=== PATIENT | male | born 1945 | race Caucasian/White ===

== ENCOUNTER 2017-05-31 09:52 | Inpatient (IN) | payer OTHER ==
[~2017-05-31] VITALS: Ht 180.3 cm; Wt 122.5 kg
[~2017-05-31 09:52] MED LIST: ASPIRIN325 MG PO; GLIPIZIDE10 MG PO; GLUCOPHAGE500 MG PO; LASIX20 MG PO; LEVAQUIN500 MG PO; METOPROLOL TART50 MG PO; PLAVIX75 MG PO; ZESTRIL20 MG PO; ZOCOR80 MG PO
[2017-05-31 10:30] LABS: BASOPHILS 0.1 % (0-2); EOSINOPHILS 0 % (0-7); HEMATOCRIT 38.1 % (42.0-54.0); HEMOGLOBIN 12.6 g/dL (13.5-17.5); IMMATURE GRANULOCYTES 0.6 % (0-5); LYMPHOCYTES 3.1 % (15-50); MCH 30.1 pg (26.0-34.0); MCHC 33.1 g/dL (31.0-37.0); MCV 91.1 fL (80.0-100.0); MEAN PLATELET VOLUME 9.7 fL (7.4-10.4); MONOCYTES 8.8 % (2-11); NEUTROPHILS 87.4 % (40-80); PLATELET COUNT 244 10x3/uL (130-400); RBC 4.18 10x6/uL (4.20-6.10); RDW 14.2 % (11.5-14.5); WBC 15.1 10x3/uL (4.8-10.8)
[2017-05-31 10:55] LABS: APPEARANCE CLOUDY (CLEAR); BILIRUBIN NEGATIVE (NEGATIVE); COLOR YELLOW (YELLOW); GLUCOSE NEGATIVE (NEGATIVE); KETONE NEGATIVE (NEGATIVE); NITRITE POSITIVE (NEGATIVE); PROTEIN 2+ mg/dL (NEGATIVE); UROBILINOGEN NORMAL (NORMAL)
[2017-05-31 11:02] LABS: RED CELLS - URINE 0-5 /hpf (0-5)
[2017-05-31 11:03] LABS: BACTERIA MANY /hpf (NONE SEEN); EPITHELIAL CELLS 0-5 /hpf (0-5); MUCUS <1+ /lpf (NONE SEEN)
[2017-05-31 11:06] LABS: ALBUMIN 3.1 g/dL (3.4-5.0); ALKALINE PHOSPHATASE 71 U/L (46-116); ALT (SGPT) 19 U/L (10-68); BILIRUBIN - TOTAL 0.23 mg/dL (0.2-1.3); CALC OSMOLALITY 293 mosm/kg (275-300); CARBON DIOXIDE 18.5 mmol/L (21.0-32.0); CHLORIDE - SERUM 100 mmol/L (98-107); CREATININE - SERUM 1.9 mg/dL (0.6-1.3); GLUCOSE 290 mg/dL (74-106); POTASSIUM - SERUM 5.1 mmol/L (3.5-5.1); PROTEIN - SERUM 7.3 g/dL (6.4-8.2); SODIUM 130 mmol/L (136-145); UREA NITROGEN 74 mg/dL (7-18); eGFR NON AFRICAN AMERICAN 37 mL/min (90-120)
[2017-05-31 11:11] LABS: CKMB 7.5 U/L (0.0-3.6); CREATINE KINASE 198 UL (21-232); MAGNESIUM - SERUM 1.7 mg/dL (1.8-2.4); PRO BNP 284 pg/mL (0-125)
[2017-05-31 11:11] LABS: AMORPHOUS SEDIMENT <1+ /lpf (NONE SEEN)
[2017-05-31 11:14] LABS: TROPONIN-I < 0.017 ng/mL (0.000-0.060)
[2017-05-31 11:15] LABS: TRIPLE PHOSPHATE CRYSTALS >50 /hpf (NONE SEEN)
[2017-05-31 21:06] LABS: APPEARANCE HAZY (CLEAR); BILIRUBIN NEGATIVE (NEGATIVE); COLOR YELLOW (YELLOW); GLUCOSE NEGATIVE (NEGATIVE); NITRITE NEGATIVE (NEGATIVE); PROTEIN 1+ mg/dL (NEGATIVE); UROBILINOGEN NORMAL (NORMAL)
[2017-05-31 21:07] LABS: WHITE CELLS - URINE 25-50 /hpf (0-5)
[2017-05-31 21:08] LABS: BACTERIA MANY /hpf (NONE SEEN)
[2017-05-31 21:24] LABS: KETONE NEGATIVE (NEGATIVE)
[2017-06-01 18:05] LABS: BASOPHILS 0.4 % (0-2); EOSINOPHILS 0 % (0-7); HEMATOCRIT 33.2 % (42.0-54.0); HEMOGLOBIN 10.6 g/dL (13.5-17.5); IMMATURE GRANULOCYTES 4.8 % (0-5); LYMPHOCYTES 8.1 % (15-50); MCH 29.3 pg (26.0-34.0); MCHC 31.9 g/dL (31.0-37.0); MCV 91.7 fL (80.0-100.0); MEAN PLATELET VOLUME 9.4 fL (7.4-10.4); MONOCYTES 7.2 % (2-11); NEUTROPHILS 79.5 % (40-80); PLATELET COUNT 229 10x3/uL (130-400); RBC 3.62 10x6/uL (4.20-6.10); RDW 14.4 % (11.5-14.5); WBC 17.8 10x3/uL (4.8-10.8)
[2017-06-01 18:39] LABS: ALBUMIN 2.6 g/dL (3.4-5.0); ANION GAP 14.9 mmol/L (8-16); BILIRUBIN - TOTAL 0.2 mg/dL (0.2-1.3); CALCIUM 8.4 mg/dL (8.5-10.1); CARBON DIOXIDE 17.8 mmol/L (21.0-32.0); CREATININE - SERUM 1.6 mg/dL (0.6-1.3); POTASSIUM - SERUM 4.7 mmol/L (3.5-5.1); PROTEIN - SERUM 5.7 g/dL (6.4-8.2)
[2017-06-01 18:49] VITALS: BMI 37.7
[2017-06-01 22:39] VITALS: BP 108/64
[2017-06-02 02:54] VITALS: BP 126/57
[2017-06-02 05:31] VITALS: BP 124/54
[2017-06-02 07:57] VITALS: BP 122/68
[2017-06-02 12:30] VITALS: BP 107/47
[2017-06-02 13:57] VITALS: Ht 180.3 cm; Wt 122.5 kg
[2017-06-02 16:33] VITALS: BP 103/44
[2017-06-02 23:32] VITALS: BP 121/48
[2017-06-03 04:00] VITALS: BP 124/48
[2017-06-03 06:01] LABS: HEMATOCRIT 32.5 % (42.0-54.0); HEMOGLOBIN 10.5 g/dL (13.5-17.5); MCH 29.4 pg (26.0-34.0); MCHC 32.3 g/dL (31.0-37.0); MEAN PLATELET VOLUME 9.8 fL (7.4-10.4); PLATELET COUNT 284 10x3/uL (130-400); RBC 3.57 10x6/uL (4.20-6.10); RDW 14.5 % (11.5-14.5); WBC 21.7 10x3/uL (4.8-10.8)
[2017-06-03 06:22] LABS: ANION GAP 14.1 mmol/L (8-16); CALCIUM 8.5 mg/dL (8.5-10.1); CREATININE - SERUM 1.5 mg/dL (0.6-1.3); POTASSIUM - SERUM 4.1 mmol/L (3.5-5.1)
[2017-06-03 06:45] LABS: LYMPHOCYTES 16 % (15-50); MONOCYTES 8 % (2-11); NEUTROPHILS 60 % (40-80); PLATELET ESTIMATE NORMAL
[2017-06-03 07:59] VITALS: BP 129/68
[2017-06-03 12:31] VITALS: BP 134/61
[2017-06-03] MEDS ORDERED: NICODERM C1 PATCH .3 TRANSDERM (16:08)
[2017-06-03] MEDS ORDERED: TAMIFLU75 MG PO (16:08)
[2017-06-03] MEDS ORDERED: PROTONIX40 MG PO (16:09)
[2017-06-03] MEDS ORDERED: ALBUTEROL2.5 MG/3 M INH (16:09)
[2017-06-03 16:19] VITALS: BP 120/65
== END 2017-06-03 17:28 | disposition home or self-care (01) | DRG 871 ==
LOC: D.ER 09:52 → D.SDCHOLD 13:54 → D.MS 13:54
PROVIDERS: Family Medicine; Internal Medicine Nephrology
DX: A41.9 Sepsis, unspecified organism (principal); J09.X1 Influenza due to identified novel influenza A virus with pneumonia; J96.01 Acute respiratory failure with hypoxia; F17.203 Nicotine dependence unspecified, with withdrawal; N17.9 Acute kidney failure, unspecified; E87.1 Hypo-osmolality and hyponatremia; N39.0 Urinary tract infection, site not specified; J44.9 Chronic obstructive pulmonary disease, unspecified; F17.200 Nicotine dependence, unspecified, uncomplicated; I10 Essential (primary) hypertension; E11.9 Type 2 diabetes mellitus without complications; I25.10 Atherosclerotic heart disease of native coronary artery without angina pectoris; C67.9 Malignant neoplasm of bladder, unspecified

== ENCOUNTER 2018-05-23 08:50 | Emergency (ER) | payer OTHER ==
[~2018-05-23] VITALS: Ht 180.3 cm; Wt 88.5 kg
[~2018-05-23 08:50] MED LIST changes: +ALBUTEROL2.5 MG/3 M INH; +NICODERM C1 PATCH .3 TRANSDERM; +PROTONIX40 MG PO; +TAMIFLU75 MG PO
[2018-05-23 08:54] VITALS: Ht 180.3 cm; Wt 88.5 kg
[2018-05-23 10:08] LABS: ALBUMIN 3.2 g/dL (3.4-5.0); ALKALINE PHOSPHATASE 91 U/L (46-116); ALT (SGPT) 14 U/L (10-68); BILIRUBIN - TOTAL 0.14 mg/dL (0.2-1.3); CALC OSMOLALITY 288 mosm/kg (275-300); CALCIUM 9.5 mg/dL (8.5-10.1); CARBON DIOXIDE 12.7 mmol/L (21.0-32.0); CHLORIDE - SERUM 100 mmol/L (98-107); CREATININE - SERUM 2.7 mg/dL (0.6-1.3); HEMATOCRIT 31.3 % (42.0-54.0); HEMOGLOBIN 10.4 g/dL (13.5-17.5); MCH 29.8 pg (26.0-34.0); MCHC 33.2 g/dL (31.0-37.0); MCV 89.7 fL (80.0-100.0); MEAN PLATELET VOLUME 9.5 fL (7.4-10.4); PLATELET COUNT 496 10x3/uL (130-400); PROTEIN - SERUM 7.1 g/dL (6.4-8.2); RBC 3.49 10x6/uL (4.20-6.10); RDW 14.4 % (11.5-14.5); SODIUM 128 mmol/L (136-145); UREA NITROGEN 101 mg/dL (7-18); WBC 39.2 10x3/uL (4.8-10.8); eGFR NON AFRICAN AMERICAN 25 mL/min (90-120)
[2018-05-23 10:09] LABS: GLUCOSE 94 mg/dL (74-106)
[2018-05-23 10:18] LABS: APPEARANCE CLOUDY (CLEAR); BILIRUBIN NEGATIVE (NEGATIVE); COLOR YELLOW (YELLOW); GLUCOSE NEGATIVE (NEGATIVE); KETONE NEGATIVE (NEGATIVE); NITRITE NEGATIVE (NEGATIVE); PROTEIN 1+ mg/dL (NEGATIVE); SPECIFIC GRAVITY 1.005 (1.005-1.020); UROBILINOGEN NORMAL (NORMAL)
[2018-05-23 10:21] LABS: CREATINE KINASE 119 UL (21-232); PRO BNP 158 pg/mL (0-125); TROPONIN-I < 0.017 ng/mL (0.000-0.060)
[2018-05-23 10:22] LABS: EPITHELIAL CELLS 0-5 /hpf (0-5); MUCUS <1+ /lpf (NONE SEEN); TALC POWDER CRYSTALS 0-5 /hpf (NONE SEEN); WHITE CELLS - URINE 0-5 /hpf (0-5)
[2018-05-23 10:23] LABS: AMORPHOUS SEDIMENT >1+ /lpf (NONE SEEN); BACTERIA MANY /hpf (NONE SEEN); RED CELLS - URINE RARE /hpf (0-5)
[2018-05-23 10:47] LABS: LYMPHOCYTES 9 % (15-50); MONOCYTES 7 % (2-11); NEUTROPHILS 83 % (40-80); PLATELET ESTIMATE INCREASED
[2018-05-23 10:48] LABS: ANISOCYTOSIS OCC
[2018-05-23 13:19] VITALS: BP 117/65
== END 2018-05-23 13:30 | disposition other institution (70) ==
LOC: D.ER 08:50
PROVIDERS: Emergency Medicine
DX: E86.0 Dehydration (principal); N17.9 Acute kidney failure, unspecified; I95.9 Hypotension, unspecified; E87.2 Acidosis; E11.9 Type 2 diabetes mellitus without complications; I10 Essential (primary) hypertension

== ENCOUNTER 2019-01-15 12:00 | Inpatient (IN) | payer MEDICARE ==
[~2019-01-15] VITALS: Ht 180.3 cm; Wt 99.8 kg
[2019-01-15 12:28] LABS: APPEARANCE CLOUDY (CLEAR); BILIRUBIN NEGATIVE (NEGATIVE); COLOR PINK (YELLOW); GLUCOSE NEGATIVE (NEGATIVE); KETONE NEGATIVE (NEGATIVE); NITRITE POSITIVE (NEGATIVE); PROTEIN 2+ mg/dL (NEGATIVE); UROBILINOGEN NORMAL (NORMAL)
[2019-01-15 12:38] LABS: BACTERIA MODERATE /hpf (NONE SEEN); EPITHELIAL CELLS NSEEN /hpf (0-5); RED CELLS - URINE 25-50 /hpf (0-5)
[2019-01-15 12:39] LABS: AMORPHOUS SEDIMENT <1+ /lpf (NONE SEEN)
[2019-01-15 12:41] LABS: BASOPHILS 0.2 % (0-2); EOSINOPHILS 0.9 % (0-7); HEMATOCRIT 41.3 % (42.0-54.0); HEMOGLOBIN 12.9 g/dL (13.5-17.5); IMMATURE GRANULOCYTES 0.9 % (0-5); LYMPHOCYTES 12.2 % (15-50); MCH 29.5 pg (26.0-34.0); MCHC 31.2 g/dL (31.0-37.0); MCV 94.3 fL (80.0-100.0); MEAN PLATELET VOLUME 10.3 fL (7.4-10.4); MONOCYTES 6.8 % (2-11); RBC 4.38 10x6/uL (4.20-6.10); RDW 14.4 % (11.5-14.5)
[2019-01-15 12:45] LABS: PLATELET COUNT 258 10x3/uL (130-400)
[2019-01-15 13:09] LABS: ANION GAP 8.5 mmol/L (8-16); BILIRUBIN - TOTAL 0.28 mg/dL (0.2-1.3); CALCIUM 8.6 mg/dL (8.5-10.1); CARBON DIOXIDE 28.9 mmol/L (21.0-32.0); CREATININE - SERUM 1.6 mg/dL (0.6-1.3); PROTEIN - SERUM 6.8 g/dL (6.4-8.2)
[2019-01-15 13:11] LABS: POTASSIUM - SERUM 6.4 mmol/L (3.5-5.1)
--- NOTE | 2019-01-15 13:12 | NUR ---
POTASSIUM 6.4 CRITICAL LAB; CHARAN RAMIREZ AND PRIMARY RN INFORMED AT THIS TIME
--- NOTE | 2019-01-15 13:26 | NUR ---
PATIENT SITTING ON THE SIDE OF THE BED; UPDATED ON PLAN OF CARE; REPORTS HE DOES NOT WANT AN IV UNTIL AFTER HE GOES OUTSIDE AND SMOKES A CIGARETTE; OFFERED A NICOTINE PATCH; REFUSED PATCH.
--- NOTE | 2019-01-15 14:15 | NUR ---
PATIENT TO RESTROOM WITHOUT ASSIST. NO NEEDS NOTED; UPDATED ON PLAN OF CARE AND DELAYS IN CARE; WILL CONTINUE TO MONITOR.
[2019-01-15 14:21] VITALS: BP 140/67
--- NOTE | 2019-01-15 15:00 | NUR ---
PATIENT TO RESTROOM WITHOUT ASSIST; NO NEEDS NOTED; WILL CONTINUE TO MONITOR
--- NOTE | 2019-01-15 15:21 | MORECARE ---
CASE MANAGEMENT DISCHARGE SUMMARY PATIENT: TROY BASS UNIT: [id number] ADM DATE: 01/15/19 AGE: 73 : 46 SEX: M ROOM/BED: D.2134 AUTHOR: ARY LARA PHYSICIAN: REFERRING PHYSICIAN: HANSA GARCIA MD DATE OF SERVICE: 01/15/19 Discharge Plan Patient Name: TROY BASS Facility: [facility]:[place] : 1945 Planned Disposition: Anticipated Discharge Date: 01/15/19 Discharge Date: Expected LOS: 1 Initial Reviewer: [email or web address] Initial Review Date: 01/15/2019 Generated: 01/15/19 4:21 pm DCPIA - Discharge Planning Initial Assessment Updated by [email or web address]: Yuliya Sarabia on 01/15/19 3:19 pm * Is the patient Alert and Oriented? Yes * How many steps to enter\exit or inside your home? none * PCP Dr. Bill @ [facility] * Pharmacy [facility] [address] * Preadmission Environment Home with Family * ADLs Independent * Equipment Glucometer * List name and contact numbers for known caregivers / representatives who currently or will assist patient after discharge: Elena Bass- - [phone] * Verbal permission to speak to the caregivers and representatives has been obtained from the patient. Yes * Community resources currently utilized None * Additional services required to return to the preadmission environment? No * Can the patient safely return to the preadmission environment? Yes * Has this patient been hospitalized within the prior 30 days at any hospital? No Patient Name: TROY BASS Page [id number] at 1521 All edits/amendments must be made on the electronic document DICTATION DATE: 01/15/19 152 CLAIM PROFESSIONAL: WARREN 01/15/19 152 RPT#: [id number] DC DATE: STATUS: ADM IN [facility] [address] [place] [address] END OF REPORT
--- NOTE | 2019-01-15 15:27 | NUR ---
REPORT GIVEN TO LORI HARRIS; SHE ASKED IF WE COULD HOLD OFF ON TRANSPORTING PATIENT UNTIL 0890;
--- NOTE | 2019-01-15 15:29 | MORECARE ---
CASE MANAGEMENT DISCHARGE SUMMARY PATIENT: TROY BASS UNIT: [id number] ADM DATE: 01/15/19 AGE: 73 : 46 SEX: M ROOM/BED: D.2134 AUTHOR: MARCO,DOC PHYSICIAN: REFERRING PHYSICIAN: HANSA GARCIA MD DATE OF SERVICE: 01/15/19 Discharge Plan Patient Name: TROY BASS Facility: [facility]:[place] : 1945 Planned Disposition: Anticipated Discharge Date: 01/15/19 Discharge Date: Expected LOS: 1 Initial Reviewer: [email or web address] Initial Review Date: 01/15/2019 Generated: 01/15/19 4:29 pm DCP- Discharge Planning Updated by [email or web address]: Yuliya Sarabia on 01/15/19 2:[address] DC PLAN: Return home independently with . ANTICIPATED DC NEEDS: Denied known dc needs. CM met with patient and his to complete initial dc planning assessment. CM educated patient on the CM role and verbal consent given by patient to complete assessment. CM verified patient's address, phone number, and emergency contact phone numbers. [facility] has [facility] connections and is refusing to transfer. CM presented [facility] consent to transfer form, his singed at his request, for decline to transfer. CM faxed to form to the [facility]. Patient lives at home with his independently. At discharge patient plans to return home and feels this is a safe discharge. CM discussed availability of home health, rehab services, and medical equipment. Patient denied known discharge needs at this time. Patient reports his will transport him/her home at time of discharge. CM will continue to follow and will assist as needed with dc plans/needs. Yuliya Sarabia RN, [facility] DCPIA - Discharge Planning Initial Assessment Updated by [email or web address]: Yuliya Sarabia on 01/15/19 3:19 pm * Is the patient Alert and Oriented? Yes * How many steps to enter\exit or inside your home? none * PCP Dr. Bill @ [facility] * Pharmacy [facility] [address] * Preadmission Environment Home with Family * ADLs Independent * Equipment Glucometer * List name and contact numbers for known caregivers / representatives who currently or will assist patient after discharge: Elena Bass- - [phone] * Verbal permission to speak to the caregivers and representatives has been obtained from the patient. Yes * Community resources currently utilized None * Additional services required to return to the preadmission environment? No * Can the patient safely return to the preadmission environment? Yes * Has this patient been hospitalized within the prior 30 days at any hospital? No Last DP export: 01/15/19 2:21 p Patient Name: TROY BASS Page [id number] at 1529 All edits/amendments must be made on the electronic document DICTATION DATE: 01/15/191528 SALES AND MARKETING ANALYST: WARREN 01/15/191528 RPT#: [id number] DC DATE: STATUS: ADM IN [facility] [address] [place] [address] END OF REPORT
--- NOTE | 2019-01-15 16:32 | NUR ---
ARRIVE TO ROOM VIA WHEELCHAIR FROM ER. ALERT AND ORIENTED X4. AMBULATES TO BED. GAIT STEADY. IV INFUSING ORDERED. REFUSE SCDs AT THIS TIME DUE TO FREQUENTLY IN RESTROOM. CONTINUE ADMISSION PROCESS. CONTINUE PLAN OF CARE AND SAFETY PRECAUTIONS.
[2019-01-15 17:51] VITALS: BP 120/70; BMI 30.7
--- NOTE | 2019-01-15 19:21 | NUR ---
PATIENT LAYING IN BED. NO COMPLAINTS AT THIS TIME. NO DISTRESS NOTED.
[2019-01-15 20:05] VITALS: BP 141/76
[2019-01-15 23:42] VITALS: BP 124/66
[2019-01-16 04:15] VITALS: BP 136/70
[2019-01-16 06:00] LABS: ALBUMIN 2.7 g/dL (3.4-5.0); ANION GAP 12.4 mmol/L (8-16); BILIRUBIN - TOTAL 0.17 mg/dL (0.2-1.3); CALCIUM 7.9 mg/dL (8.5-10.1); CARBON DIOXIDE 26.5 mmol/L (21.0-32.0); CREATININE - SERUM 1.6 mg/dL (0.6-1.3); MAGNESIUM - SERUM 1.5 mg/dL (1.8-2.4); PROTEIN - SERUM 6.2 g/dL (6.4-8.2)
[2019-01-16 06:13] LABS: BASOPHILS 0.3 % (0-2); EOSINOPHILS 0.7 % (0-7); HEMATOCRIT 39.5 % (42.0-54.0); HEMOGLOBIN 12.1 g/dL (13.5-17.5); IMMATURE GRANULOCYTES 0.8 % (0-5); LYMPHOCYTES 11.4 % (15-50); MCH 29.1 pg (26.0-34.0); MCHC 30.6 g/dL (31.0-37.0); MEAN PLATELET VOLUME 10.4 fL (7.4-10.4); MONOCYTES 7.8 % (2-11); PLATELET COUNT 262 10x3/uL (130-400); RBC 4.16 10x6/uL (4.20-6.10); RDW 14.7 % (11.5-14.5); WBC 10.8 10x3/uL (4.8-10.8)
[2019-01-16 06:18] LABS: POTASSIUM - SERUM 4.9 mmol/L (3.5-5.1)
--- NOTE | 2019-01-16 07:30 | NUR ---
RECIEVED REPORT. SITTING UP IN BED. ALERT AND ORIENTED X4. SINUS RHYTHM ON TELEMETRY 87. DENIES PAIN OR SOB. UROSTOMY BAG PINK TINGED DRAINAGE. ESPRESSES WANTING TO BE DISCHARGED. DENIES ANY NEEDS AT THIS TIME. CONTINUE PLAN OF CARE AND SAFETY PRECAUTIONS.
--- NOTE | 2019-01-16 07:33 | NUR ---
I have reviewed this patient and I concur with the Shift Assessment completed by the Licensed Practical Nurse today this shift.
[2019-01-16 08:14] VITALS: BP 122/66
[2019-01-16 11:17] VITALS: BP 115/64
[2019-01-16 14:07] VITALS: Ht 180.3 cm; Wt 99.8 kg
[2019-01-16 15:23] VITALS: BP 106/56
--- NOTE | 2019-01-16 18:04 | NUR ---
ALERT AND ORIENTED X4. UROSTOMY DRESSING CHANGED WITH OVIEDO DRAINAGE BACK CONNECTED DRAINING BY GRAVITY. SINUS RHYTHM ON TELEMETRY. DENIES SOB OR PAIN. EXPRESSES READY TO GO HOME. EXPLAIN WAITING FOR URINE CULTURES TO RESULT. DENIES ANY NEEDS AT THIS TIME. CONTINUE PLAN OF CARE AND SAFETY PRECAUTIONS.
[2019-01-16 20:00] VITALS: BP 116/62
--- NOTE | 2019-01-16 21:15 | NUR ---
PT A/OX4, VOICES NEEDS, RIGHT PIV INTACT WITH NS @ 125CC/HR, UROSTOMY INTACT TO OVIEDO BAG TO BSD, NO C/O @ THIS TIME
[2019-01-17] VITALS: BP 111/60
--- NOTE | 2019-01-17 03:24 | NUR ---
I have reviewed this patient and I concur with the Shift Assessment completed by the Licensed Practical Nurse today this shift.
[2019-01-17 04:00] VITALS: BP 120/56
--- NOTE | 2019-01-17 07:31 | NUR ---
PATIENT IS AWAKE AND ALERT. SITTING UP IN BED WAITING ON BREAKFAST. REQUEST BELKIS, AND STATES,"COME HELL OR HIGH WATER, I AM GETTING OUT OF HERE TODAY." ALSO SAYS THAT HE NORMALLY TAKES ASPIRIN AND PLAVIX AND NEEDS THAT ADDED TO HIS MEDS THIS MORNING IF THE DR WILL NOT ALLOW HIM TO DISCHARGE. HE WANTS TO GO HOME.
[2019-01-17 07:59] LABS: BASOPHILS 0.2 % (0-2); EOSINOPHILS 0.9 % (0-7); HEMATOCRIT 39.3 % (42.0-54.0); HEMOGLOBIN 11.7 g/dL (13.5-17.5); IMMATURE GRANULOCYTES 0.9 % (0-5); LYMPHOCYTES 13.9 % (15-50); MCH 28.6 pg (26.0-34.0); MCHC 29.8 g/dL (31.0-37.0); MCV 96.1 fL (80.0-100.0); NEUTROPHILS 75.1 % (40-80); PLATELET COUNT 244 10x3/uL (130-400); RBC 4.09 10x6/uL (4.20-6.10); RDW 14.7 % (11.5-14.5); WBC 10.8 10x3/uL (4.8-10.8)
[2019-01-17 08:14] LABS: ALBUMIN 2.7 g/dL (3.4-5.0); ANION GAP 12.5 mmol/L (8-16); BILIRUBIN - TOTAL 0.17 mg/dL (0.2-1.3); CALCIUM 7.3 mg/dL (8.5-10.1); CARBON DIOXIDE 26.4 mmol/L (21.0-32.0); CREATININE - SERUM 1.7 mg/dL (0.6-1.3); MAGNESIUM - SERUM 1.3 mg/dL (1.8-2.4); POTASSIUM - SERUM 4.9 mmol/L (3.5-5.1); PROTEIN - SERUM 5.8 g/dL (6.4-8.2)
[2019-01-17 08:39] VITALS: BP 143/77
[2019-01-17] MEDS ORDERED: LEVOFLOXACIN500 MG PO (09:34)
--- NOTE | 2019-01-17 09:53 | MORECARE ---
CASE MANAGEMENT DISCHARGE SUMMARY PATIENT: TROY BASS UNIT: [id number] ADM DATE: 01/15/19 AGE: 73 : 47 SEX: M ROOM/BED: D.7044 AUTHOR: MARCO,DOC PHYSICIAN: REFERRING PHYSICIAN: HANSA GARCIA MD DATE OF SERVICE: 01/17/19 Discharge Plan Patient Name: TROY BASS Facility: [facility]:[place] : 1945 Planned Disposition: Home Anticipated Discharge Date: 01/17/19 Discharge Date: Expected LOS: 2 Initial Reviewer: [email or web address] Initial Review Date: 01/15/2019 Generated: 01/17/19 10:53 am Comments DCP- Discharge Planning Updated by [email or web address]: Suleman Garcia on 01/17/19 8:[address] Patient Name: TROY BASS Encounter No: [id number] : 1945 Primary Insurance: MEDICARE A & B Anticipated DC Date: 01-17-2019 Planned Disposition: Home DCP follow-up note: CM MET WITH PT IN ROOM TO DISCUSS DISCHARGE NEEDS AND PLANNING. CM DISCUSSED AVAILABILITY OF HOME HEALTH, REHAB SERVICES AND MEDICAL EQUIPMENT. PT DENIES DISCHARGE NEEDS. SPOUSE TO TRANSPORT HOME AT DISCHARGE. IMPORTANT MESSAGE FROM MEDICARE PROVIDED AND EXPLAINED. CRANE OPERATOR NURSE NOTIFIED. PAWEL Cerna DCP- Discharge Planning Updated by [email or web address]: Yuliya Sarabia on 01/15/19 2:[address] DC PLAN: Return home independently with . ANTICIPATED DC NEEDS: Denied known dc needs. CM met with patient and his to complete initial dc planning assessment. CM educated patient on the CM role and verbal consent given by patient to complete assessment. CM verified patient's address, phone number, and emergency contact phone numbers. Patient has [facility] connections and is refusing to transfer. CM presented [facility] consent to transfer form, his singed at his request, for decline to transfer. CM faxed to form to the [facility]. Patient lives at home with his independently. At discharge patient plans to return home and feels this is a safe discharge. CM discussed availability of home health, rehab services, and medical equipment. Patient denied known discharge needs at this time. Patient reports his will transport him/her home at time of discharge. CM will continue to follow and will assist as needed with dc plans/needs. Yuliya Sarabia RN, CCM DCPIA - Discharge Planning Initial Assessment Updated by [email or web address]: Yuliya Sarabia on 01/15/19 3:19 pm * Is the patient Alert and Oriented? Yes * How many steps to enter\exit or inside your home? none * PCP Dr. Bill @ [facility] * Pharmacy [facility] [address] * Preadmission Environment Home with Family * ADLs Independent * Equipment Glucometer * List name and contact numbers for known caregivers / representatives who currently or will assist patient after discharge: Elena Bass- - [phone] * Verbal permission to speak to the caregivers and representatives has been obtained from the patient. Yes * Community resources currently utilized None * Additional services required to return to the preadmission environment? No * Can the patient safely return to the preadmission environment? Yes * Has this patient been hospitalized within the prior 30 days at any hospital? No Coverage Notice Reviewer: [email or web address] Sharon Garcia Notice Issued Date-Time: 01/17/2019 9:45 Notice Type: IM Discharge Notice Notice Delivered To: Patient Relationship to Patient: Dice Maker Name: Delivery Method: HAND - Hand Delivered Mirna Days: Prior Verbal Notification: Recipient Understood Notice: Yes Recipient Signature: Yes Med Rec Note Co-signed by Attending: Coverage Notice Comment: Last DP export: 01/15/19 2:29 p Patient Name: TROY BASS Page 95691 at 0953 All edits/amendments must be made on the electronic document DICTATION DATE: 01/17/19951 BLAST FURNACE OPERATOR: WARREN 01/17/19951 RPT#: [id number] DC DATE: STATUS: ADM IN [facility] [address] [place] [address] END OF REPORT
--- NOTE | 2019-01-17 10:37 | NUR ---
PATIENT HAS BEEN DISCHARGED. ALL DISCHARGE TEACHING HAS BEEN DONE AND PAPERS SIGNED. IV REMOVED WITH CATHETER INTACT. ALL PATIENT BELONGINGS HAVE BEEN REMOVED FROM THE ROOM. PATIENT IS GOING HOME WITH FAMILY AND WENT DOWNSTAIRS BY WHEEL CHAIR.
== END 2019-01-17 10:39 | disposition home or self-care (01) | DRG 698 ==
LOC: D.ER 12:00 → D.M2 15:06
PROVIDERS: Emergency Medicine; ADMIT Internal Medicine Nephrology; ATTEND Internal Medicine Nephrology
DX: N99.521 Infection of incontinent external stoma of urinary tract (principal); A41.9 Sepsis, unspecified organism; N39.0 Urinary tract infection, site not specified; N17.9 Acute kidney failure, unspecified; E87.1 Hypo-osmolality and hyponatremia; F17.213 Nicotine dependence, cigarettes, with withdrawal; E11.65 Type 2 diabetes mellitus with hyperglycemia; I12.9 Hypertensive chronic kidney disease with stage 1 through stage 4 chronic kidney disease, or unspecified chronic kidney disease; E11.22 Type 2 diabetes mellitus with diabetic chronic kidney disease; N18.9 Chronic kidney disease, unspecified; E87.5 Hyperkalemia; D64.9 Anemia, unspecified; I25.10 Atherosclerotic heart disease of native coronary artery without angina pectoris; J44.9 Chronic obstructive pulmonary disease, unspecified; K21.9 Gastro-esophageal reflux disease without esophagitis; Y84.9 Medical procedure, unspecified as the cause of abnormal reaction of the patient, or of later complication, without mention of misadventure at the time of the procedure

== ENCOUNTER 2019-07-04 13:51 | Emergency (ER) | payer OTHER ==
[~2019-07-04] VITALS: Ht 180.3 cm; Wt 84.1 kg
[~2019-07-04 13:51] MED LIST changes: +LEVOFLOXACIN500 MG PO
[2019-07-04 13:59] VITALS: Ht 180.3 cm; Wt 84.1 kg
[2019-07-04] MEDS ORDERED: CLEOCIN HCL300 MG PO (16:58)
[2019-07-04 17:21] VITALS: BP 159/87
== END 2019-07-04 17:21 | disposition home or self-care (01) ==
LOC: D.ER 13:51
DX: L98.9 Disorder of the skin and subcutaneous tissue, unspecified (principal); E11.9 Type 2 diabetes mellitus without complications; I10 Essential (primary) hypertension; I25.10 Atherosclerotic heart disease of native coronary artery without angina pectoris; J44.9 Chronic obstructive pulmonary disease, unspecified; K21.9 Gastro-esophageal reflux disease without esophagitis; Z95.5 Presence of coronary angioplasty implant and graft